=== PATIENT | female | born 1965 | race Caucasian/White ===

== ENCOUNTER 2017-04-27 07:46 | Emergency (ER) | payer BC, MEDICAID ==
[2017-04-27] MEDS ORDERED: Sodium Chloride 0.9% 1,000 ML IV ONE (08:02)
[2017-04-27] MEDS ORDERED: Sodium Chloride 0.9% 2.5 ML Syringe FLUSH PRN (08:02)
[2017-04-27] MEDS ORDERED: Sodium Chloride 0.9% 10 ML Syringe FLUSH PRN (08:02)
--- NOTE | 2017-04-27 08:04 | EDM.PDOC ---
ED HPI GENERAL MEDICAL PROBLEM - General Chief Complaint: Abdominal Pain Stated Complaint: PAIN ON RIGHT SIDE Time Seen by Provider: 04/27/17 08:01 - History of Present Illness INITIAL COMMENTS - FREE TEXT/NARRATIVE: HISTORY AND PHYSICAL: History of present illness: Patient is a 52-year-old white female presents with a concern of right lower quadrant pain she's had associated nausea and vomiting this been going on for 2 weeks she had a total hysterectomy and prior cholecystectomy. There's been no trauma no urinary symptoms no vaginal discharge bleeding or other concern Review of systems: As per history of present illness and below otherwise all systems reviewed and negative. Past medical history: As per history of present illness and as reviewed below otherwise noncontributory. Surgical history: As per history of present illness and as reviewed below otherwise noncontributory. Social history: No reported history of drug or alcohol abuse. Family history: As per history of present illness and as reviewed below otherwise noncontributory. Physical exam: HEENT: Atraumatic, normocephalic, pupils reactive, negative for conjunctival pallor or scleral icterus, mucous membranes moist, throat clear, neck supple, nontender, trachea midline. Lungs: Clear to auscultation, breath sounds equal bilaterally, chest nontender. Heart: S1S2, regular, negative for clicks, rubs, or JVD. Abdomen: Soft, nondistended, pain localizing right lower quadrant no rebound no guarding. Negative for masses or hepatosplenomegaly. Negative for costovertebral tenderness. Pelvis: Stable nontender. Genitourinary: Deferred. Rectal: Deferred. Extremities: Atraumatic, negative for cords or calf pain. Neurovascular unremarkable. Neuro: Awake, alert, oriented. Cranial nerves II through XII unremarkable. Cerebellum unremarkable. Motor and sensory unremarkable throughout. Exam nonfocal. Diagnostics: CBC CMP UA CT abdomen and pelvis Therapeutics: Saline 1 L bolus Impression: 1 right-sided abdominal Definitive disposition and diagnosis as appropriate pending reevaluation and review of above. - Related Data Allergies Allergy/AdvReac Type Severity Reaction Status Date / Time No Known Allergies Allergy Verified 12/29/15 22:46 Home Meds: Home Meds . [No Known Home Meds] 04/27/17 [History] Past Medical History HEENT History: Reports: None Cardiovascular History: Reports: None Respiratory History: Reports: None Gastrointestinal History: Reports: None Genitourinary History: Reports: None THEATRE MANAGER History: Reports: None Musculoskeletal History: Reports: None Neurological History: Reports: None Psychiatric History: Reports: None Endocrine/Metabolic History: Reports: None Hematologic History: Reports: None Immunologic History: Reports: None Oncologic (Cancer) History: Reports: None Dermatologic History: Reports: None - Infectious Disease History Infectious Disease History: Reports: None - Past Surgical History Head Surgeries/Procedures: Reports: None HEENT Surgical History: Reports: None GI Surgical History: Reports: Cholecystectomy Musculoskeletal Surgical History: Reports: None Social & Family History - Tobacco Use Smoking Status *Q: Never Smoker - Caffeine Use Caffeine Use: Reports: None - Recreational Drug Use Recreational Drug Use: No ED ROS GENERAL - Review of Systems Review Of Systems: ROS reveals no pertinent complaints other than HPI. ED EXAM, GENERAL - Physical Exam Exam: See Below (See dictation) Course - Vital Signs Last Recorded V/S: Last Vital Signs Temp 36.4 C 04/27/17 08:00 Pulse 66 04/27/17 08:00 Resp 18 04/27/17 08:00 BP 122/59 L 04/27/17 08:00 Pulse Ox 95 04/27/17 08:00 - Orders/Labs/Meds Orders: Active Orders 24 hr Category Date Time Status COMPREHENSIVE METABOLIC PN,CMP [CHEM] Stat Lab 04/27/17 08:18 Received Sodium Chloride 0.9% [Normal Saline] 1,000 ml Med 04/27/17 08:02 Active IV STAT Sodium Chloride 0.9% [Saline Flush] Med 04/27/17 08:02 Active 10 ml FLUSH ASDIRECTED PRN Sodium Chloride 0.9% [Saline Flush] Med 04/27/17 08:02 Active 2.5 ml FLUSH ASDIRECTED PRN Saline Lock Insert [OM.PC] Stat Oth 04/27/17 08:01 Ordered Medication Orders Sodium Chloride (Normal Saline) 1,000 mls @ 999 mls/hr IV STAT ONE Stop: 04/27/17 09:02 Last Admin: 04/27/17 08:20 Dose: 999 mls/hr Sodium Chloride (Saline Flush) 10 ml FLUSH ASDIRECTED PRN PRN Reason: Keep Vein Open Last Admin: 04/27/17 08:20 Dose: 10 ml Sodium Chloride (Saline Flush) 2.5 ml FLUSH ASDIRECTED PRN PRN Reason: Keep Vein Open Last Admin: 04/27/17 08:20 Dose: 2.5 ml Labs: Laboratory Tests 04/27/17 04/27/17 Range/Units 08:15 08:18 WBC 8.01 (4.0-11.0) K/uL RBC 4.55 (4.30-5.90) M/uL Hgb 14.3 (12.0-16.0) g/dL Hct 42.4 (36.0-46.0) % MCV 93.2 (80.0-98.0) fL MCH 31.4 (27.0-32.0) pg MCHC 33.7 (31.0-37.0) g/dL RDW Std Deviation 42.7 (28.0-62.0) fl RDW Coeff of Jamie 13 (11.0-15.0) % Plt Count 316 (150-400) K/uL MPV 10.30 (7.40-12.00) fL Neut % (Auto) 59.4 (48.0-80.0) % Lymph % (Auto) 32.6 (16.0-40.0) % Pine % (Auto) 6.4 (0.0-15.0) % Eos % (Auto) 1.4 (0.0-7.0) % Baso % (Auto) 0.2 (0.0-1.5) % Neut # (Auto) 4.8 (1.4-5.7) K/uL Lymph # (Auto) 2.6 H (0.6-2.4) K/uL Pine # (Auto) 0.5 (0.0-0.8) K/uL Eos # (Auto) 0.1 (0.0-0.7) K/uL Baso # (Auto) 0.0 (0.0-0.1) K/uL Nucleated RBC % 0.0 /100WBC Nucleated RBCs # 0 K/uL Urine Color YELLOW Urine Appearance SLT CLOUDY Urine pH 6.0 (5.0-8.0) Ur Specific Kiefer 1.025 (1.001-1.035) Urine Protein TRACE (NEGATIVE) mg/dL Urine Glucose (UA) NEGATIVE (NEGATIVE) mg/dL Urine Ketones TRACE H (NEGATIVE) mg/dL Urine Occult Blood NEGATIVE (NEGATIVE) Urine Nitrite NEGATIVE (NEGATIVE) Urine Bilirubin SMALL H (NEGATIVE) Urine Ictotest Urine Urobilinogen 0.2 (<2.0) EU/dL Ur Leukocyte Esterase TRACE (NEGATIVE) Urine RBC 0-1 (0-2/HPF) Urine WBC 0-2 (0-5/HPF) Ur Epithelial Cells OCCASIONAL (NONE-FEW) Urine Bacteria FEW (NEGATIVE) Urine Mucus LIGHT (NONE-MOD) Urinalysis Comment Meds: Medications Generic Name Dose Route Start Last Admin Trade Name Freq PRN Reason Stop Dose Admin Sodium Chloride 1,000 mls @ 999 mls/hr 04/27/17 08:02 04/27/17 08:20 Normal Saline IV 04/27/17 09:02 999 mls/hr STAT ONE Administration Sodium Chloride 10 ml 04/27/17 08:02 04/27/17 08:20 Saline Flush FLUSH 10 ml ASDIRECTED PRN Administration Keep Vein Open Sodium Chloride 2.5 ml 04/27/17 08:02 04/27/17 08:20 Saline Flush FLUSH 2.5 ml ASDIRECTED PRN Administration Keep Vein Open Departure - Departure Time of Disposition: : Disposition: Home, Self-Care 01 Condition: Good Clinical Impression: Abdominal pain - Discharge Information Referrals: PCP,None [Primary Care Provider] - Forms: ED Department Discharge Additional Instructions: The following information is given to patients seen in the emergency department who are being discharged to home. This information is to outline your options for follow-up care. We provide all patients seen in our emergency department with a follow-up referral. The need for follow-up, as well as the timing and circumstances, are variable depending upon the specifics of your emergency department visit. If you don't have a primary care physician on staff, we will provide you with a referral. We always advise you to contact your personal physician following an emergency department visit to inform them of the circumstance of the visit and for follow-up with them and/or the need for any referrals to a consulting specialist. The emergency department will also refer you to a specialist when appropriate. This referral assures that you have the opportunity for followup care with a specialist. All of these measure are taken in an effort to provide you with optimal care, which includes your followup. Under all circumstances we always encourage you to contact your private physician who remains a resource for coordinating your care. When calling for followup care, please make the office aware that this follow-up is from your recent emergency room visit. If for any reason you are refused follow-up, please contact the [facility] emergency department at and asked to speak to the emergency department charge nurse. Specialty Care - General Surgery [facility] [address] [place] [address], [address] [place] [address] Follow-up Gen. surgery clinic above call to schedule appointment as discussed return as needed as discussed - My Orders Last 24 Hours: My Active Orders 04/27/17 08:01 Saline Lock Insert [OM.PC] Stat 04/27/17 08:02 Sodium Chloride 0.9% [Normal Saline] 1,000 ml IV STAT Sodium Chloride 0.9% [Saline Flush] 10 ml FLUSH ASDIRECTED PRN Sodium Chloride 0.9% [Saline Flush] 2.5 ml FLUSH ASDIRECTED PRN 04/27/17 08:18 COMPREHENSIVE METABOLIC PN,CMP [CHEM] Stat - Assessment/Plan Last 24 Hours: My Active Orders 04/27/17 08:01 Saline Lock Insert [OM.PC] Stat 04/27/17 08:02 Sodium Chloride 0.9% [Normal Saline] 1,000 ml IV STAT Sodium Chloride 0.9% [Saline Flush] 10 ml FLUSH ASDIRECTED PRN Sodium Chloride 0.9% [Saline Flush] 2.5 ml FLUSH ASDIRECTED PRN 04/27/17 08:18 COMPREHENSIVE METABOLIC PN,CMP [CHEM] Stat
[2017-04-27 08:19] VITALS: BP 122/59
--- NOTE | 2017-04-27 08:56 | CT ---
CT of the abdomen and pelvis without contrast. HISTORY: Pain TECHNIQUE: Axial CT images were obtained of the abdomen and pelvis without contrast. Coronal and sagi ttal reconstructions obtained. FINDINGS: The lung bases are clear, no pleural effusion. There is a 6 mm nodule within the medial right lung ba se. The liver, spleen, adrenal glands, and pancreas appear unremarkable for noncontrast examination. Chol ecystectomy. There is no bulky retroperitoneal lymphadenopathy. No abdominal ascites. Mild nonspecifi c oni mesentery appearance within the abdomen scattered small mesenteric lymph nodes. There are a f ew tiny fat-containing supraumbilical midline incisional hernias noted. There are no calcifications noted within the kidneys or along the courses of the ureters bilaterally. The large and small bowel are normal in caliber without evidence of obstruction. The appendix appears normal. Mild diverticulosis is noted. There is no bulky pelvic lymphadenopathy. No free fluid. No fr ee air. The urinary bladder appears normal. The visualized osseous structures appear normal. IMPRESSION: 1. No acute findings within the abdomen or pelvis. 2. Mild diverticulosis without definite diverticulitis. 3. Mild nonspecific oni mesentery appearance. 4. Cholecystectomy. 5. Several very tiny supraumbilical midline fat-containing hernias.
[2017-04-27 09:02] LABS: CHLORIDE,CL 107 mmol/L (98-107); SODIUM,NA 144 mmol/L (136-145)
== END 2017-04-27 09:30 | disposition home or self-care (01) ==
LOC: MW.ED 07:46
DX: R10.31 Right lower quadrant pain (principal); Z90.710 Acquired absence of both cervix and uterus; Z90.49 Acquired absence of other specified parts of digestive tract
CPT/HCPCS: 36415; 74176; 80053; 81001; 85025; 96360; 99284; J7040; 99283

== ENCOUNTER 2020-03-29 22:05 | Observation (INO) | payer BC ==
[2020-03-29] MEDS ORDERED: Aspirin 81 MG Tab.Chew PO ONE (22:29)
[2020-03-29] MEDS ORDERED: Sodium Chloride 0.9% 10 ML Syringe FLUSH PRN (22:29)
[2020-03-29] MEDS ORDERED: Sodium Chloride 0.9% 2.5 ML Syringe FLUSH PRN (22:29)
[2020-03-29] MEDS ORDERED: Nitroglycerin 2% Oint 1 GM UD Packet TOP ONE (22:31)
--- NOTE | 2020-03-29 22:35 | EDM.PDOC ---
ED HPI GENERAL MEDICAL PROBLEM - General Chief Complaint: Chest Pain Stated Complaint: CHEST PAIN Time Seen by Provider: 03/29/20 22:20 - History of Present Illness INITIAL COMMENTS - FREE TEXT/NARRATIVE: HISTORY AND PHYSICAL: History of present illness: This is a 54-year-old female with no significant past medical history for hypertension, diabetes, liver, lung, kidney problems to presents to the ER today secondary to intermittent episodes of chest pressure for 3 weeks. Patient reports today while she was assisting her move a table she started experiencing discomfort to her chest. She reports the discomfort feels like a pressure sensation in the midsternal region with numbness going down both arms and associated shortness of breath. Patient denies any nausea, vomiting, diaphoresis. Patient reports pain is sometimes exacerbated with exertional and other times is improved with walking. Patient reports pain with expiration but no pain with inspiration. Patient denies any recent fevers, shakes, chills, nausea, vomiting, diarrhea, dysuria, frequency, urgency, abdominal pain. Patient denies any melena or bright red blood per rectum. Review of systems: As per history of present illness and below otherwise all systems reviewed and negative. Past medical history: As per history of present illness and as reviewed below otherwise noncontributory. Surgical history: As per history of present illness and as reviewed below otherwise noncontributory. Social history: No reported history of drug or alcohol abuse. Family history: As per history of present illness and as reviewed below otherwise noncontributory. Physical exam: Constitutional: Patient is oriented to person, place, and time. Appears well- developed and well-nourished. No distress. HEENT: Moist mucous membranes Head: Normocephalic and atraumatic Eyes: Right eye exhibits no discharge. Left eye exhibits no discharge. No scleral icterus Neck: Normal range of motion. No tracheal deviation present. Cardiovascular: Normal rate and regular rhythm. Pulmonary: Effort normal, no respiratory distress. Abdominal: No distention Musculoskeletal: Normal range of motion Neurologic: Alert and oriented to person, place and time. Skin: [place], warm and dry. Psychiatric: Normal mood and affect. Behavior is normal. Judgment and thought content normal. Nursing note and vital signs have been reviewed This patient was seen and evaluated during the 2019 SARS-CoV-2 novel coronavirus pandemic period. Community viral transmission is ongoing at time of this encounter and the emergency department is operating under pandemic response procedures. Diagnostics: EKG: As interpreted by ER physician: Neela: Nonspecific ST-T wave abnormalities Normal axis No evidence of ST elevation PR Normal sinus rhythm heart rate of 62 Chest Xray: Normal cardiac silhouette No infiltrates or effusions identified. No PTX No evidence of acute bony fracture. As interpreted by ER MD: [employer]: [] Assessment and plan: This is a 54-year-old female with no significant cardiac risk factors who presents ER today complaining of exertional chest discomfort, shortness of breath, tingling down both arms. She reports been having intermittent chest discomfort for 3 weeks. Patient reports she is never had a cardiac work-up in the past. Patient has no significant family history for coronary disease, no hypertension, no diabetes, negative tobacco, negative cholesterol. Patient denies any PE risk factors at this time. Patient reports she has no lower extremity edema. Patient reports that she has chronic swelling to her left lower leg but no significant changes. Patient reports no recent long trips or car rides. Patient will have labs drawn to assess her cardiac enzymes, CBC, CMP, D-dimer, BNP. We will look at her chest x-ray and EKG. I have discussed with the patient the limitation of these tests and the likely need for observation admission for further cardiac monitoring. Patient is agreement with the plan at this time. Patient's labs are all within normal limits. Patient has normal D-dimer, BNP, troponin, chest x-ray/EKG. Patient is agreeable to observation for further cardiac evaluation. I have discussed the case with Dr. Vargas who is agreed to assist this with observation level care of this patient for further cardiac monitoring. Definitive disposition and diagnosis as appropriate pending reevaluation and review of above. Chest Pain Score (Numeric/FACES): 6 - Related Data Allergies Allergy/AdvReac Type Severity Reaction Status Date / Time No Known Allergies Allergy Verified 03/30/20 04:20 Home Meds: Home Meds . [No Known Home Meds] 04/27/17 [History] Past Medical History HEENT History: Reports: None Cardiovascular History: Reports: None Respiratory History: Reports: None Gastrointestinal History: Reports: None Genitourinary History: Reports: None FINANCIAL CONTROLLER History: Reports: None Musculoskeletal History: Reports: None Neurological History: Reports: None Psychiatric History: Reports: None Endocrine/Metabolic History: Reports: None Hematologic History: Reports: None Immunologic History: Reports: None Oncologic (Cancer) History: Reports: None Dermatologic History: Reports: None - Infectious Disease History Infectious Disease History: Reports: None - Past Surgical History Head Surgeries/Procedures: Reports: None HEENT Surgical History: Reports: None GI Surgical History: Reports: Cholecystectomy Musculoskeletal Surgical History: Reports: None Social & Family History - Caffeine Use Caffeine Use: Reports: None ED ROS GENERAL - Review of Systems Review Of Systems: See Below ED EXAM, GENERAL - Physical Exam Exam: See Below Course - Vital Signs Last Recorded V/S: Last Vital Signs Temp 96.6 F L 03/30/20 08:00 Pulse 66 03/30/20 08:00 Resp 17 03/30/20 08:00 BP 131/65 03/30/20 08:00 Pulse Ox 94 L 03/30/20 08:15 - Orders/Labs/Meds Orders: Active Orders 24 hr Category Date Time Status Saline Lock Insert [OM.PC] Stat Oth 03/29/20 22:29 Ordered Labs: Laboratory Tests 03/29/20 03/29/20 03/29/20 Range/Units 22:12 22:12 22:12 WBC 11.98 H (4.0-11.0) K/uL RBC 4.12 L (4.30-5.90) M/uL Hgb 13.4 (12.0-16.0) g/dL Hct 39.5 (36.0-46.0) % MCV 95.9 (80.0-98.0) fL MCH 32.5 H (27.0-32.0) pg MCHC 33.9 (31.0-37.0) g/dL RDW Std Deviation 44.7 (28.0-62.0) fl RDW Coeff of Jamie 13 (11.0-15.0) % Plt Count 361 (150-400) K/uL MPV 10.50 (7.40-12.00) fL Neut % (Auto) 58.2 (48.0-80.0) % Lymph % (Auto) 31.4 (16.0-40.0) % [place]aca % (Auto) 9.0 (0.0-15.0) % Eos % (Auto) 1.2 (0.0-7.0) % Baso % (Auto) 0.2 (0.0-1.5) % Neut # (Auto) 7.0 H (1.4-5.7) K/uL Lymph # (Auto) 3.8 H (0.6-2.4) K/uL [place] # (Auto) 1.1 H (0.0-0.8) K/uL Eos # (Auto) 0.1 (0.0-0.7) K/uL Baso # (Auto) 0.0 (0.0-0.1) K/uL Nucleated RBC % 0.0 /100WBC Nucleated RBCs # 0 K/uL D-Dimer, Quantitative 0.42 (0.0-0.50) mg/L FEU Sodium 142 (136-145) mmol/L Potassium 4.1 (3.5-5.1) mmol/L Chloride 105 (98-107) mmol/L Carbon Dioxide 30.5 (21.0-32.0) mmol/L BUN 21 H (7.0-18.0) mg/dL Creatinine 1.5 H (0.6-1.0) mg/dL Est Cr Clr Drug Dosing 41.48 mL/min Estimated GFR (MDRD) 35.9 ml/min Glucose 99 (74-106) mg/dL Calcium 8.9 (8.5-10.1) mg/dL Total Bilirubin 0.6 (0.2-1.0) mg/dL AST 24 (15-37) IU/L ALT 37 (14-63) IU/L Alkaline Phosphatase 71 (46-116) U/L Troponin I < 0.050 (0.000-0.056) ng/mL B-Natriuretic Peptide (<100) PG/ML Total Protein 7.5 (6.4-8.2) g/dL Albumin 3.8 (3.4-5.0) g/dL Globulin 3.7 (2.6-4.0) g/dL Albumin/Globulin Ratio 1.0 (0.9-1.6) SARS-CoV-2 RNA (CAMPOS) (NEGATIVE) 03/29/20 03/29/20 Range/Units 22:12 22:50 WBC (4.0-11.0) K/uL RBC (4.30-5.90) M/uL Hgb (12.0-16.0) g/dL Hct (36.0-46.0) % MCV (80.0-98.0) fL MCH (27.0-32.0) pg MCHC (31.0-37.0) g/dL RDW Std Deviation (28.0-62.0) fl RDW Coeff of Jamie (11.0-15.0) % Plt Count (150-400) K/uL MPV (7.40-12.00) fL Neut % (Auto) (48.0-80.0) % Lymph % (Auto) (16.0-40.0) % [place]aca % (Auto) (0.0-15.0) % Eos % (Auto) (0.0-7.0) % Baso % (Auto) (0.0-1.5) % Neut # (Auto) (1.4-5.7) K/uL Lymph # (Auto) (0.6-2.4) K/uL [place] # (Auto) (0.0-0.8) K/uL Eos # (Auto) (0.0-0.7) K/uL Baso # (Auto) (0.0-0.1) K/uL Nucleated RBC % /100WBC Nucleated RBCs # K/uL D-Dimer, Quantitative (0.0-0.50) mg/L FEU Sodium (136-145) mmol/L Potassium (3.5-5.1) mmol/L Chloride (98-107) mmol/L Carbon Dioxide (21.0-32.0) mmol/L BUN (7.0-18.0) mg/dL Creatinine (0.6-1.0) mg/dL Est Cr Clr Drug Dosing mL/min Estimated GFR (MDRD) ml/min Glucose (74-106) mg/dL Calcium (8.5-10.1) mg/dL Total Bilirubin (0.2-1.0) mg/dL AST (15-37) IU/L ALT (14-63) IU/L Alkaline Phosphatase (46-116) U/L Troponin I (0.000-0.056) ng/mL B-Natriuretic Peptide 9 (<100) PG/ML Total Protein (6.4-8.2) g/dL Albumin (3.4-5.0) g/dL Globulin (2.6-4.0) g/dL Albumin/Globulin Ratio (0.9-1.6) SARS-CoV-2 RNA (CAMPOS) NEGATIVE (NEGATIVE) Meds: Medications Discontinued Medications Generic Name Dose Route Start Last Admin Trade Name Freq PRN Reason Stop Dose Admin Acetaminophen 650 mg 03/30/20 08:15 03/30/20 10:04 Tylenol PO 650 mg Q4H PRN Administration Pain (Mild 1-3)/fever Aspirin 324 mg 03/29/20 22:29 03/29/20 22:40 Aspirin PO 03/29/20 22:30 324 mg ONETIME ONE Administration Aspirin Confirm 03/29/20 22:41 03/30/20 00:52 Aspirin Administered 03/29/20 22:42 Not Given Dose 324 mg .ROUTE .STK-MED ONE Sodium Chloride 1,000 mls @ 999 mls/hr 03/30/20 08:19 03/30/20 09:51 Normal Saline IV 03/30/20 09:19 999 mls/hr STAT ONE Administration Nitroglycerin 1 gm 03/29/20 22:31 03/29/20 22:41 Nitro-Bid 2% TOP 03/29/20 22:32 1 gm ONETIME ONE Administration Nitroglycerin Confirm 03/29/20 22:41 03/30/20 00:53 Nitro-Bid 2% Administered 03/29/20 22:42 Not Given Dose 1 gm .ROUTE .STK-MED ONE Ondansetron HCl 4 mg 03/30/20 08:15 Zofran IVPUSH Q4H PRN Nausea Sodium Chloride 10 ml 03/29/20 22:29 03/29/20 22:41 Saline Flush FLUSH 10 ml ASDIRECTED PRN Administration Keep Vein Open Sodium Chloride 2.5 ml 03/29/20 22:29 03/29/20 22:41 Saline Flush FLUSH 2.5 ml ASDIRECTED PRN Administration Keep Vein Open Departure - Departure Time of Disposition: 23:37 Disposition: Refer to Observation Condition: Good Clinical Impression: Acute coronary syndrome - Discharge Information Sepsis Event Note (ED) - Evaluation Sepsis Screening Result: No Definite Risk - My Orders Last 24 Hours: My Active Orders 03/29/20 22:29 Saline Lock Insert [OM.PC] Stat - Assessment/Plan Last 24 Hours: My Active Orders 03/29/20 22:29 Saline Lock Insert [OM.PC] Stat
[2020-03-29] MEDS ORDERED: Aspirin 81 MG Tab.Chew ONE (22:41)
[2020-03-29] MEDS ORDERED: Nitroglycerin 2% Oint 1 GM UD Packet ONE (22:41)
--- NOTE | 2020-03-29 22:48 | CR ---
INDICATION: chest pain CHEST, ONE VIEW An AP radiograph of the chest was performed. Comparison: No previous studies are currently available for comparison. The lungs appear clear and no pleural effusions are identified. The cardiomediastinal silhouette and pulmonary vasculature appear normal, as do the visualized bones. IMPRESSION: No acute intrathoracic abnormality identified. LE WILKES MD [employer] [employer] Dictated by: Steffen Wilkes MD @ 03/29/2020 22:48:34 (Electronically Signed)
[2020-03-29 22:56] LABS: BLOOD UREA NITROGEN,BUN 21 mg/dL (7.0-18.0); CARBON DIOXIDE,CO2 30.5 mmol/L (21.0-32.0); CHLORIDE,CL 105 mmol/L (98-107); GLUCOSE RANDOM 99 mg/dL (74-106); POTASSIUM,K 4.1 mmol/L (3.5-5.1); SODIUM,NA 142 mmol/L (136-145)
[2020-03-30 08:07] VITALS: BP 131/65; PULSE 66
[2020-03-30] MEDS ORDERED: Acetaminophen 325 MG Tab PO PRN (08:15)
[2020-03-30] MEDS ORDERED: Ondansetron 4 MG/2 ML SDV IVPUSH PRN (08:15)
[2020-03-30] MEDS ORDERED: Sodium Chloride 0.9% 1,000 ML IV ONE (08:19)
--- NOTE | 2020-03-30 08:24 | PCM.HP.2 ---
H&P History of Present Illness - General Date of Service: 03/30/20 Admit Problem/Dx: Admission Diagnosis/Problem Admission Diagnosis/Problem Acute coronary syndrome Source of Information: Patient History Limitations: Reports: No Limitations - History of Present Illness Initial Comments - Free Text/Narative: 54-year-old female presented complaining of chest pain. She reports no significant PMH. Patient has had intermittent chest pain for the past 3 weeks, located in her central chest, described as feeling like "a pressure," and will last for a few hours. She also had associated right and left arm numbness and tingling and shortness of breath. She does report feeling a lot of stress lately but came to the ER because she was concerned about her heart. She has not had a ny fevers, chill, sore throat, cough, nausea, vomiting, abdominal pain, bloody stool or bloody urine. She denies any tobacco, alcohol or illicit drug use. In the ER, CBC unremarkable, creatinine 1.5, troponin negative, D-dimer normal and BNP normal. CXR was unremarkable. Patient given aspirin 324 mg. EKG showed NSR with no acute ischemic changes. She was admitted for further evaluation and treatment. Chest Pain Score (Numeric/FACES): 3 - Related Data Allergies/Adverse Reactions: Allergies Allergy/AdvReac Type Severity Reaction Status Date / Time No Known Allergies Allergy Verified 03/30/20 04:20 Home Medications: Home Meds . 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 Musculoskeletal History: Reports: None Neurological History: Reports: None Psychiatric History: Reports: None Endocrine/Metabolic History: Reports: None Hematologic History: Reports: None Immunologic History: Reports: None Oncologic (Cancer) History: Reports: None Dermatologic History: Reports: None - Infectious Disease History Infectious Disease History: Reports: None - Past Surgical History Head Surgeries/Procedures: Reports: None HEENT Surgical History: Reports: None GI Surgical History: Reports: Cholecystectomy Female Surgical History: Reports: Hysterectomy Musculoskeletal Surgical History: Reports: None Social & Family History - Family History Family Medical History: No Pertinent Family History - Tobacco Use Tobacco Use Status *Q: Never Tobacco User Second Hand Smoke Exposure: No - Caffeine Use Caffeine Use: Reports: None - Recreational Drug Use Recreational Drug Use: No H&P Review of Systems - Review of Systems: Review Of Systems: Comprehensive ROS is negative, except as noted in HPI. Exam - Exam Exam: See Below - Vital Signs Vital Signs: Last Vital Signs Temp 35.9 C L 03/30/20 08:00 Pulse 66 03/30/20 08:00 Resp 17 03/30/20 08:00 BP 131/65 03/30/20 08:00 Pulse Ox 94 L 03/30/20 08:00 Weight: 88.723 kg - Exam General: Alert, Oriented, Cooperative, Other (NAD) HEENT: Conjunctiva Clear, EOMI, Hearing Intact, Pupils Equal, Pupils Reactive Neck: Supple, Trachea Midline Lungs: Clear to Auscultation, Normal Respiratory Effort Cardiovascular: Regular Rate, Regular Rhythm GI/Abdominal Exam: Normal Bowel Sounds, Soft, Non-Tender, No Distention Extremities: Normal Inspection, No Pedal Edema Peripheral Pulses: 2+: Radial (L), Radial (R) Skin: Warm, Dry, Intact Neurological: Cranial Nerves Intact, Reflexes Equal Bilateral, Strength Equal Bilateral, Normal Speech, Normal Tone Neuro Extensive - Mental Status: Alert, Oriented x3, Normal Mood/Affect Psychiatric: Alert, Normal Affect, Normal Mood - Patient Data Lab Results Last 24 hrs: Laboratory Results - last 24 hr 03/29/20 03/29/20 03/29/20 Range/Units 22:12 22:12 22:12 WBC 11.98 H (4.0-11.0) K/uL RBC 4.12 L (4.30-5.90) M/uL Hgb 13.4 (12.0-16.0) g/dL Hct 39.5 (36.0-46.0) % MCV 95.9 (80.0-98.0) fL MCH 32.5 H (27.0-32.0) pg MCHC 33.9 (31.0-37.0) g/dL RDW Std Deviation 44.7 (28.0-62.0) fl RDW Coeff of Jamie 13 (11.0-15.0) % Plt Count 361 (150-400) K/uL MPV 10.50 (7.40-12.00) fL Neut % (Auto) 58.2 (48.0-80.0) % Lymph % (Auto) 31.4 (16.0-40.0) % Victoria % (Auto) 9.0 (0.0-15.0) % Eos % (Auto) 1.2 (0.0-7.0) % Baso % (Auto) 0.2 (0.0-1.5) % Neut # (Auto) 7.0 H (1.4-5.7) K/uL Lymph # (Auto) 3.8 H (0.6-2.4) K/uL Victoria # (Auto) 1.1 H (0.0-0.8) K/uL Eos # (Auto) 0.1 (0.0-0.7) K/uL Baso # (Auto) 0.0 (0.0-0.1) K/uL Nucleated RBC % 0.0 /100WBC Nucleated RBCs # 0 K/uL D-Dimer, Quantitative 0.42 (0.0-0.50) mg/L FEU Sodium 142 (136-145) mmol/L Potassium 4.1 (3.5-5.1) mmol/L Chloride 105 (98-107) mmol/L Carbon Dioxide 30.5 (21.0-32.0) mmol/L BUN 21 H (7.0-18.0) mg/dL Creatinine 1.5 H (0.6-1.0) mg/dL Est Cr Clr Drug Dosing 41.48 mL/min Estimated GFR (MDRD) 35.9 ml/min Glucose 99 (74-106) mg/dL Calcium 8.9 (8.5-10.1) mg/dL Total Bilirubin 0.6 (0.2-1.0) mg/dL AST 24 (15-37) IU/L ALT 37 (14-63) IU/L Alkaline Phosphatase 71 (46-116) U/L Troponin I < 0.050 (0.000-0.056) ng/mL B-Natriuretic Peptide (<100) PG/ML Total Protein 7.5 (6.4-8.2) g/dL Albumin 3.8 (3.4-5.0) g/dL Globulin 3.7 (2.6-4.0) g/dL Albumin/Globulin Ratio 1.0 (0.9-1.6) SARS-CoV-2 RNA (CAMPOS) (NEGATIVE) 03/29/20 03/29/20 03/30/20 Range/Units 22:12 22:50 03:57 WBC (4.0-11.0) K/uL RBC (4.30-5.90) M/uL Hgb (12.0-16.0) g/dL Hct (36.0-46.0) % MCV (80.0-98.0) fL MCH (27.0-32.0) pg MCHC (31.0-37.0) g/dL RDW Std Deviation (28.0-62.0) fl RDW Coeff of Jamie (11.0-15.0) % Plt Count (150-400) K/uL MPV (7.40-12.00) fL Neut % (Auto) (48.0-80.0) % Lymph % (Auto) (16.0-40.0) % Victoria % (Auto) (0.0-15.0) % Eos % (Auto) (0.0-7.0) % Baso % (Auto) (0.0-1.5) % Neut # (Auto) (1.4-5.7) K/uL Lymph # (Auto) (0.6-2.4) K/uL Victoria # (Auto) (0.0-0.8) K/uL Eos # (Auto) (0.0-0.7) K/uL Baso # (Auto) (0.0-0.1) K/uL Nucleated RBC % /100WBC Nucleated RBCs # K/uL D-Dimer, Quantitative (0.0-0.50) mg/L FEU Sodium (136-145) mmol/L Potassium (3.5-5.1) mmol/L Chloride (98-107) mmol/L Carbon Dioxide (21.0-32.0) mmol/L BUN (7.0-18.0) mg/dL Creatinine (0.6-1.0) mg/dL Est Cr Clr Drug Dosing mL/min Estimated GFR (MDRD) ml/min Glucose (74-106) mg/dL Calcium (8.5-10.1) mg/dL Total Bilirubin (0.2-1.0) mg/dL AST (15-37) IU/L ALT (14-63) IU/L Alkaline Phosphatase (46-116) U/L Troponin I < 0.050 (0.000-0.056) ng/mL B-Natriuretic Peptide 9 (<100) PG/ML Total Protein (6.4-8.2) g/dL Albumin (3.4-5.0) g/dL Globulin (2.6-4.0) g/dL Albumin/Globulin Ratio (0.9-1.6) SARS-CoV-2 RNA (CAMPOS) NEGATIVE (NEGATIVE) Result Diagrams: 03/29/20 22:12 03/29/20 22:12 Sepsis Event Note - Evaluation Sepsis Screening Result: No Definite Risk - Focused Exam Vital Signs: Vital Signs Temp Pulse Resp BP Pulse Ox 03/30/20 08:00 35.9 C L 66 17 131/65 94 L 03/30/20 04:00 36.1 C 70 15 112/57 L 95 03/30/20 01:00 36.0 C L 63 16 144/68 H 96 03/30/20 00:54 57 L 113/53 L 97 03/29/20 22:17 36.3 C 57 L 16 146/62 H 99 - Problem List (1) Chest pain SNOMED Code(s): 70649628 ICD Code: R07.9 - CHEST PAIN, UNSPECIFIED Status: Acute Current Visit: Yes (2) HERNANDO (acute kidney injury) SNOMED Code(s): 83050255, 57163389 ICD Code: N17.9 - ACUTE KIDNEY FAILURE, UNSPECIFIED Status: Acute Current Visit: Yes Problem List Initiated/Reviewed/Updated: Yes Orders Last 24hrs: Active Orders 24 hr Category Date Time Status Patient Status [ADT] Routine ADT 03/29/20 23:37 Active Antiembolic Devices [RC] PER UNIT ROUTINE Care 03/30/20 08:15 Active Oxygen Therapy [RC] PRN Care 03/30/20 08:15 Active Telemetry Monitoring [Cardiac Monitoring] [RC] . Care 03/30/20 00:22 Active DIRECTED Up ad Sejal [RC] ASDIRECTED Care 03/30/20 08:15 Active VTE/DVT Education [RC] PER UNIT ROUTINE Care 03/30/20 08:15 Active Vital Signs [RC] Q4H Care 03/30/20 08:15 Active Regular Diet [DIET] Diet 03/30/20 Breakfast Active CBC WITH AUTO DIFF [HEME] AM Lab 03/31/20 05:11 Ordered COMPREHENSIVE METABOLIC PN,CMP [CHEM] AM Lab 03/31/20 05:11 Ordered TROPONIN I [CHEM] Q6H Lab 03/30/20 10:00 Ordered Acetaminophen [TylenoL] Med 03/30/20 08:15 Active 650 mg PO Q4H PRN Ondansetron [Zofran] Med 03/30/20 08:15 Active 4 mg IVPUSH Q4H PRN Sodium Chloride 0.9% [Normal Saline] 1,000 ml Med 03/30/20 08:19 Ordered IV STAT Sodium Chloride 0.9% [Saline Flush] Med 03/29/20 22:29 Active 10 ml FLUSH ASDIRECTED PRN Sodium Chloride 0.9% [Saline Flush] Med 03/29/20 22:29 Active 2.5 ml FLUSH ASDIRECTED PRN Saline Lock Insert [OM.PC] Stat Oth 03/29/20 22:29 Ordered Sequential Compression Device [OM.PC] Per Unit Routine Oth 03/30/20 08:15 Ordered Resuscitation Status Routine Resus Stat 03/30/20 08:15 Ordered Medication Orders Acetaminophen (Tylenol) 650 mg PO Q4H PRN PRN Reason: Pain (Mild 1-3)/fever Sodium Chloride (Normal Saline) 1,000 mls @ 999 mls/hr IV STAT ONE Stop: 03/30/20 09:19 Ondansetron HCl (Zofran) 4 mg IVPUSH Q4H PRN PRN Reason: Nausea Sodium Chloride (Saline Flush) 10 ml FLUSH ASDIRECTED PRN PRN Reason: Keep Vein Open Last Admin: 03/29/20 22:41 Dose: 10 ml Documented by: ALESIA Sodium Chloride (Saline Flush) 2.5 ml FLUSH ASDIRECTED PRN PRN Reason: Keep Vein Open Last Admin: 03/29/20 22:41 Dose: 2.5 ml Documented by: ALESIA Assessment/Plan Comment:: Assessment and Plan: 1. Chest pain, ACS rule out: - Patient on telemetry. Will trend troponins. EKG showed NSR with no acute ischemic changes. - CXR unremarkable. 2. HERNANDO: - Will order 1 L NS bolus. 3. DVT prophylaxis: - SCD's. Discharge Summary: 54-year-old female admitted for chest pain, ACS rule out. She has no significant PMH. EKG showed no acute ischemic changes. Troponins were trended and were negative x 3. No reported events on telemetry overnight. On morning of discharge, patient noted no recurrence of her chest pain. She does report dealing with a lot of stress lately and she was encouraged on focusing on stress relieving methods. Her creatinine was 1.5 and was given IV NS bolus. R ecommended repeat CMP when following-up with PCP as an outpatient. Patient was discharged in stable condition and will be set up for EKG stress test with results forwarded to her PCP Dr. Curry.
== END 2020-03-30 11:25 | disposition home or self-care (01) ==
LOC: MW.ED 22:05 → UNDOADMOB 23:37 → MW.ICU 23:37
PROVIDERS: ADMIT Internal Medicine; ATTEND Internal Medicine
DX: R07.89 Other chest pain (principal); N17.9 Acute kidney failure, unspecified; Z90.49 Acquired absence of other specified parts of digestive tract; Z20.822 Contact with and (suspected) exposure to COVID-19
CPT/HCPCS: 36415; 71045; 80053; 83880; 84484; 85025; 85379; 87635; 93005; 99285; A9270; G0378; J7030; 93010; 99284; U0002

== ENCOUNTER 2020-11-25 10:52 | Emergency (ER) | payer BC ==
--- NOTE | 2020-11-25 12:21 | EDM.PDOC ---
ED HPI GENERAL MEDICAL PROBLEM - General Chief Complaint: Respiratory Problem Stated Complaint: COUGH Time Seen by Provider: 11/25/20 11:46 Source of Information: Reports: Patient History Limitations: Reports: No Limitations - History of Present Illness INITIAL COMMENTS - FREE TEXT/NARRATIVE: HISTORY AND PHYSICAL: History of present illness: Patient is a 55-year-old female who presents to the emergency room with complaints of thick productive cough and shortness of breath x1 week. Patient denies any fever, chills, headache, change in vision, syncope or near syncope. Denies any chest pain, back pain, GI or symptoms. Patient has been eating and drinking appropriately. No recent travel or sick contacts. Review of systems: As per history of present illness and below otherwise all systems reviewed and negative. Past medical history: As per history of present illness and as reviewed below otherwise noncontributory. Surgical history: As per history of present illness and as reviewed below otherwise noncontributory. Social history: See social history for further information Family history: As per history of present illness and as reviewed below otherwise no ncontributory. Physical exam: General: Well developed and well nourished 55 year old female. Alert and orientated x 3. Nontoxic in appearance and in no acute distress. Vital signs are stable and have been reviewed by me. Nursing notes were reviewed. HEENT: Atraumatic, normocephalic, pupils equal and reactive bilaterally, negative for conjunctival pallor or scleral icterus, mucous membranes moist, throat clear, neck supple, nontender, trachea midline. No drooling or trismus noted. No meningeal signs. No hot potato voice noted. Lungs: Diminished to auscultation bilaterally. No wheezes, rales, or rhonchi. Chest nontender. Normal work of breathing, no accessory muscles used. Dry nonproductive cough is noted. Heart: S1S2, regular rate and rhythm without overt murmur, gallops, or rubs. No JVD. No peripheral edema Abdomen: Soft, nondistended, nontender. Normoactive bowel sounds. Negative for masses or costovertebral tenderness. Skin: Intact, warm, dry. No lesions or rashes noted. Hematologic: No petechiae or purpra. Mucosa appropriate color and normal nail bed color and refill. Extremities: Atraumatic, moves all extremities per self without difficulty or deficits, negative for cords or calf pain. Neurovascular unremarkable. Neuro: Awake, alert, oriented. Cranial nerves II through XII unremarkable. Cerebellum unremarkable. Motor and sensory unremarkable throughout. Exam nonfocal. Psychiatric: Mood and affect are appropriate. Normal thought process. Answering questions appropriately. Please note that the patient was seen and evaluated during the 2019 SARS-CoV-2 novel coronavirus pandemic period. Community viral transmission is ongoing at time of this encounter and the emergency department is operating under pandemic response procedures. Medical Decision Making: Patient is a 55-year-old female who presents to the emergency room with complaints of cough and shortness of breath x1 week. Her tested positive for COVID-19. Physical exam is unremarkable. Vital signs are stable Chest x-ray shows new minimal patchy right mid and left lateral lower lung infiltrates, nonspecific. Findings not strongly suggestive for COVID-19, but this cannot be excluded. I have talked with the patient about today's findings, in addition to providing specific details for plan of care. Reassessment at the time of disposition demonstrates that the patient is in no acute distress. The patient is stable for discharge, counseling was provided and we discussed in great detail signs and symptoms that would prompt them to return to the Emergency Department. Medication, follow up and supportive care measures were reviewed and discussed. Voices understanding and is agreeable to plan of care. Denies any further questions or concerns at this time. Diagnostics: CXR, COVID Therapeutics: None Prescription: None Impression: COVID-19 Plan: 1. Your COVID-19 screening is positive. That means you do have the coronavirus and you are considered contagious. Your vital signs and oxygen saturation are well enough that you were able to monitor your symptoms at home. Continue to monitor for trouble breathing, new confusion or inability to arouse, bluish lips or face or any of the other symptoms we discussed -if this occurs please return to the emergency room immediately. 2. Please self quarantine until cleared by [facility] Department. Inform any persons that you have been in contact with since you started becoming symptomatic that you have tested positive; they should be made aware and take the appropriate steps as needed. 3. You can take NyQuil during the evening to help get a restful night sleep. May alternate Tylenol and ibuprofen as needed for pain and fever management. 4. The [facility] department will be calling you and following up with you. The [place] COVID 19 Hotline phone number , They are open Thursday - Thursday 7am - 7pm. Follow up with your primary care provider for re-evaluation as directed. Definitive disposition and diagnosis as appropriate pending reevaluation and review of above. - Related Data Allergies Allergy/AdvReac Type Severity Reaction Status Date / Time Sulfa (Sulfonamide Allergy Rash Verified 11/25/20 12:09 Antibiotics) Home Meds: Home Meds . 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 Musculoskeletal History: Reports: None Neurological History: Reports: None Psychiatric History: Reports: None Endocrine/Metabolic History: Reports: None Hematologic History: Reports: None Immunologic History: Reports: None Oncologic (Cancer) History: Reports: None Dermatologic History: Reports: None - Infectious Disease History Infectious Disease History: Reports: None - Past Surgical History Head Surgeries/Procedures: Reports: None HEENT Surgical History: Reports: None GI Surgical History: Reports: Cholecystectomy Female Surgical History: Reports: Hysterectomy Musculoskeletal Surgical History: Reports: None Social & Family History - Family History Family Medical History: No Pertinent Family History - Caffeine Use Caffeine Use: Reports: None ED ROS GENERAL - Review of Systems Review Of Systems: Comprehensive ROS is negative, except as noted in HPI. ED EXAM, GENERAL - Physical Exam Exam: See Below (See dictation) Course - Vital Signs Last Recorded V/S: Last Vital Signs Temp Pulse 67 11/25/20 12:53 Resp 16 11/25/20 12:53 BP 116/53 L 11/25/20 12:53 Pulse Ox 95 11/25/20 12:53 - Orders/Labs/Meds Orders: Active Orders 24 hr Category Date Time Status CORONAVIRUS COVID-19 CAMPOS [MOLEC] Stat Lab 11/25/20 12:48 Received Departure - Departure Time of Disposition: 13:33 Disposition: Home, Self-Care 01 Clinical Impression: COVID-19 - Discharge Information Instructions: 10 Things You Can Do to Manage Your COVID-19 Symptoms at Home - [facility] (08/24/2020) Referrals: Bebeto Curry MD [Primary Care Provider] - Forms: ED Department Discharge Additional Instructions: The following information is given to patients seen in the emergency department who are being discharged to home. This information is to outline your options for follow-up care. We provide all patients seen in our emergency department with a follow-up referral. The need for follow-up, as well as the timing and circumstances, are variable depending upon the specifics of your emergency department visit. If you don't have a primary care physician on staff, we will provide you with a referral. We always advise you to contact your personal physician following an emergency department visit to inform them of the circumstance of the visit and for follow-up with them and/or the need for any referrals to a consulting specialist. The emergency department will also refer you to a specialist when appropriate. This referral assures that you have the opportunity for follow-up care with a specialist. All of these measure are taken in an effort to provide you with optimal care, which includes your follow-up. Under all circumstances we always encourage you to contact your private physician who remains a resource for coordinating your care. When calling for follow-up care, please make the office aware that this follow-up is from your recent emergency room visit. If for any reason you are refused follow-up, please contact the [facility] at and asked to speak to the emergency department charge nurse. [facility] [address] [place] [address] [place] [address] Thank you for choosing the [facility] emergency department in [place] for your medical needs today. It was a pleasure caring for you. Today you were seen in the emergency department for COVID-19 1. Today you were evaluated on an emergent basis. Your chest x-ray shows signs of COVID-19 although no concern for bacterial pneumonia. Your COVID-19 screening is positive. That means you do have the coronavirus and you are considered contagious. Your vital signs and oxygen saturation are well enough that you were able to monitor your symptoms at home. Continue to monitor for trouble breathing, new confusion or inability to arouse, bluish lips or face or any of the other symptoms we discussed -if this occurs please return to the emergency room immediately. 2. Please self quarantine until cleared by [facility] Department. Inform any persons that you have been in contact with since you started becoming symptomatic that you have tested positive; they should be made aware and take the appropriate steps as needed. 3. You can take NyQuil during the evening to help get a restful night sleep. May alternate Tylenol and ibuprofen as needed for pain and fever management. 4. The [facility] department will be calling you and following up with you. The [place] COVID 19 Hotline phone number , They are open Thursday - Thursday 7am - 7pm. Follow up with your primary care provider for re-evaluation as directed. Sepsis Event Note (ED) - Focused Exam Vital Signs: Vital Signs Pulse Resp BP Pulse Ox 11/25/20 12:53 67 16 116/53 L 95 11/25/20 12:12 75 16 100/65 95 - My Orders Last 24 Hours: My Active Orders 11/25/20 12:48 CORONAVIRUS COVID-19 CAMPOS [MOLEC] Stat - Assessment/Plan Last 24 Hours: My Active Orders 11/25/20 12:48 CORONAVIRUS COVID-19 CAMPOS [MOLEC] Stat
[2020-11-25 12:55] VITALS: BP 116/53
--- NOTE | 2020-11-25 13:00 | CR ---
INDICATION: Cough COMPARISON: 03/29/2020 FINDINGS: PA and lateral views of the chest were obtained. There are new minimal patchy right mid and left lateral lower lung infiltrates. These are nonspecific, and could represent an atypical pneumonia such as COVID-19, but could also be from an early bacterial pneumonia. The rest of the chest remains clear. There is no sign of any pleural effusions. The heart remains normal in size. The mediastinum is normal in appearance. The osseous structures are normal in appearance for the patient`s age. IMPRESSION: New minimal patchy right mid and left lateral lower lung infiltrates, nonspecific. Findings not strongly suggestive for COVID-19, but this cannot be excluded. Dictated by Rusty Suarez MD @ 11/25/2020 12:59:23 PM (Electronically Signed)
[2020-11-25 13:55] VITALS: PULSE 68
== END 2020-11-25 13:54 | disposition home or self-care (01) ==
LOC: MW.ED 10:52
DX: U07.1 COVID-19 (principal); Z88.2 Allergy status to sulfonamides
CPT/HCPCS: 71046; 71046-26; 87804; 99285-25; U0002

== ENCOUNTER 2023-02-25 13:13 | Emergency (ER) | payer BC, OTHER ==
[2023-02-25] MEDS ORDERED: LORazepam 2 MG/ML SDV IVPUSH ONE (13:43)
[2023-02-25 14:02] VITALS: BP 135/80; PULSE 65
[2023-02-25 14:02] LABS: BASOPHILS ABSOLUTE AUTO 0.04 K/uL (0.00-0.20); BASOPHILS PERCENT AUTO 0.4 % (0.0-1.0); EOSINOPHILS ABSOLUTE AUTO 0.09 K/uL (0.00-0.45); EOSINOPHILS PERCENT AUTO 0.9 % (0.0-6.0); HEMATOCRIT 39.5 % (37.0-47.0); HEMOGLOBIN 13.3 g/dL (12.0-16.0); IMMATURE GRAN ABSOLUTE AUTO 0.04 K/uL (0.00-0.05); IMMATURE GRAN PERCENT AUTO 0.4 % (0.0-0.4); LYMPHOCYTES ABSOLUTE AUTO 2.58 K/uL (1.00-4.80); LYMPHOCYTES PERCENT AUTO 25.4 % (24.0-44.0); MEAN CORPUSCULAR HEMOGLOBIN 31.5 pg (28.0-32.0); MEAN CORPUSCULAR HGB CONC 33.7 g/dL (32.0-36.0); MEAN CORPUSCULAR VOLUME 93.6 fL (83.0-99.0); MEAN PLATELET VOLUME 9.7 fL (9.4-12.3); MONOCYTES ABSOLUTE AUTO 0.69 K/uL (0.00-0.80); MONOCYTES PERCENT AUTO 6.8 % (0.0-8.0); NEUTROPHILS ABSOLUTE AUTO 6.71 K/uL (1.80-7.70); NEUTROPHILS PERCENT AUTO 66.1 % (41.0-71.0); PLATELET COUNT,PLT 327 K/uL (150-400); RED BLOOD CELL COUNT 4.22 M/uL (4.10-5.30); WHITE BLOOD CELL COUNT,WBC 10.15 K/uL (3.9-11.3)
[2023-02-25 14:13] LABS: INR 1.03 (0.86-1.11); PTT,PARTIAL THROMBOPLSTIN TIME 33.1 SEC (23.9-30.7)
[2023-02-25 14:20] LABS: CORONAVIRUS COVID-19 NAA NEGATIVE (NEGATIVE); INFLUENZA A NAA NEGATIVE (NEGATIVE); INFLUENZA B NAA NEGATIVE (NEGATIVE)
[2023-02-25 14:26] LABS: ALBUMIN 3.9 g/dL (3.4-5.0); BILIRUBIN TOTAL 0.8 mg/dL (0.2-1.0); CALCIUM 9.3 mg/dL (8.5-10.1); CARBON DIOXIDE,CO2 27.3 mmol/L (21.0-32.0); EST CRCL DRUG DOSING (CG) 58.91 mL/min; MAGNESIUM 2.1 mg/dL (1.8-2.4); PROTEIN TOTAL,TP 7.7 g/dL (6.4-8.2); TSH ULTRASENSITIVE 1.7 uIU/mL (0.36-3.74)
== END 2023-02-25 14:58 | disposition home or self-care (01) ==
LOC: MW.ED 13:13
DX: R20.2 Paresthesia of skin (principal); Z88.0 Allergy status to penicillin; Z90.710 Acquired absence of both cervix and uterus
CPT/HCPCS: 0240U; 36415; 70450; 80053; 83735; 84443; 84484; 85025; 85610; 85730; 93005; 96374; 99284; J2060; 93010

== ENCOUNTER 2024-10-26 09:13 | Inpatient (IN) | payer OTHER ==
[2024-10-26] MEDS ORDERED: Sodium Chloride 0.9% 10 ML Syringe FLUSH PRN ×3 (09:18→13:16)
[2024-10-26] MEDS ORDERED: Sodium Chloride 0.9% 2.5 ML Syringe FLUSH PRN ×3 (09:18→13:16)
[2024-10-26 09:24] LABS: MEAN PLATELET VOLUME 10.1 fL (9.4-12.3); NRBC ABSOLUTE 0.00 K/uL (0.00-0.02); NRBC PERCENT 0.0 /100WBC (0.0-0.2); PLATELET COUNT,PLT 286 K/uL (150-400); RED BLOOD CELL COUNT 3.39 M/uL (4.10-5.30); WHITE BLOOD CELL COUNT,WBC 10.16 K/uL (3.9-11.3)
[2024-10-26] MEDS: Ondansetron 4 MG/2 ML SDV IVPUSH ONE (09:27)
[2024-10-26] MEDS ORDERED: Norepinephrine Bit/D5W Premix 250 ML IV SCH (09:30)
[2024-10-26 09:31] LABS: BASE EXCESS ARTERIAL -8.4 (-2.0-3.0); BICARBONATE,ARTERIAL 18 mEq/L (21-28); PCO2 ARTERIAL 39 mmHG (35-45); PO2 ARTERIAL 106 mmHG (83-108)
[2024-10-26 09:33] LABS: INR 1.16 (0.86-1.11)
[2024-10-26 10:05] LABS: A/G RATIO 1.1 (0.9-1.6); ALANINE AMINOTRANSFERASE,ALT 13 IU/L (14-63); ASPARTATE AMNIOTRANSFERASE,AST 20 IU/L (15-37); BILIRUBIN TOTAL 0.9 mg/dL (0.2-1.0); BLOOD UREA NITROGEN,BUN 15 mg/dL (7.0-18.0); CARBON DIOXIDE,CO2 17.3 mmol/L (21.0-32.0); CHLORIDE,CL 114 mmol/L (98-107); CREATINE KINASE,CK 155 U/L (26-308); CREATININE 1.2 mg/dL (0.6-1.0); ETHANOL BLOOD MEDICAL <3 mg/dL; GLUCOSE RANDOM 201 mg/dL (74-106); PRO B-TYPE NATRIUR PEPT,BNPPRO 92 pg/mL (0-125); PROTEIN TOTAL,TP 5.2 g/dL (6.4-8.2); SODIUM,NA 144 mmol/L (136-145)
[2024-10-26 10:15] LABS: ESTIMATED GFR 52 mL/min (>60); POTASSIUM,K 2.4 mmol/L (3.5-5.1)
[2024-10-26] MEDS: Potassium Chloride 20 MEQ Tab.ER PO ONE (10:28)
[2024-10-26] MEDS: Magnesium Sulfate 2 GM/50 mL 2 GM in Premix Bag 1 BAG IV ONE (10:31)
[2024-10-26 10:46] LABS: BAND ABSOLUTE MAN 0.10; BAND PERCENT MAN 1 %; LYMPHOCYTES ABSOLUTE MAN 7.42 K/uL (1.00-4.80); LYMPHOCYTES PERCENT MAN 73 % (24-44); MONOCYTES ABSOLUTE MAN 0.81 K/uL (0.00-0.80); MONOCYTES PERCENT MAN 8 % (0-8); SEG NEUTROPHILS ABSOLUTE MAN 1.83 K/uL (1.80-7.70); SEG NEUTROPHILS PERCENT MAN 18 % (41-71)
[2024-10-26 11:02] LABS: TSH ULTRASENSITIVE 5.65 uIU/mL (0.36-3.74)
[2024-10-26 11:22] LABS: T4 FREE 1.06 ng/dL (0.76-1.46)
[2024-10-26 11:31] LABS: BASE EXCESS VENOUS -3.6 (-2.0-3.0); BICARBONATE,VENOUS 23.0 mEq/L (22-29); PCO2 VENOUS 45.0 mmHG (41-51); PH,VENOUS 7.31 (7.32-7.43); PO2 VENOUS 47.0 mmHG (35-45)
[2024-10-26] MEDS: Iopamidol 755 MG/ML 500 ML Multipack Bottle IVPUSH STA (11:50)
[2024-10-26] MEDS ORDERED: Ondansetron 4 MG Tab.DIS PO PRN (13:16)
[2024-10-26] MEDS ORDERED: Ondansetron 4 MG/2 ML SDV IVPUSH PRN (13:16)
[2024-10-26] MEDS ORDERED: Acetaminophen/HYDROcodone 325-5 MG Tab PO PRN (13:16)
[2024-10-26 13:18] LABS: APPEARANCE,URINE CLEAR; GLUCOSE,URINE 100 mg/dL (NEGATIVE); OCCULT BLOOD,URINE NEGATIVE (NEGATIVE)
[2024-10-26 13:28] LABS: AMPHETAMINES SCREEN, URINE NEGATIVE (CUTOFF=500); BUPRENORPHINE SCREEN,URINE NEGATIVE (CUTOFF=10); METHADONE SCREEN, URINE NEGATIVE (CUTOFF=200); METHAMPHETAMINES SCREEN, URINE NEGATIVE (CUTOFF=500); OXYCODONE SCREEN,URINE NEGATIVE (CUT0FF=100); PCP SCREEN,URINE NEGATIVE (CUTOFF=25); THC SCREEN,URINE 20 NG/ML NEGATIVE (CUTOFF=50)
[2024-10-26 16:41] LABS: BLOOD UREA NITROGEN,BUN 15.0 mg/dL (7.0-18.0); CARBON DIOXIDE,CO2 24.2 mmol/L (21.0-32.0); CHLORIDE,CL 108.0 mmol/L (98-107); CREATININE 1.1 mg/dL (0.6-1.0); EST CRCL DRUG DOSING (CG) 53.2 mL/min; ESTIMATED GFR 57.0 mL/min (>60); GLUCOSE RANDOM 122.0 mg/dL (74-106); POTASSIUM,K 4.8 mmol/L (3.5-5.1); SODIUM,NA 141.0 mmol/L (136-145)
[2024-10-26] MEDS: diphenhydrAMINE 50 MG/ML SDV IVPUSH PRN (17:12)
[2024-10-27 05:48] LABS: BASOPHILS ABSOLUTE AUTO 0.03 K/uL (0.00-0.20); BASOPHILS PERCENT AUTO 0.1 % (0.0-1.0); EOSINOPHILS ABSOLUTE AUTO 0.00 K/uL (0.00-0.45); EOSINOPHILS PERCENT AUTO 0.0 % (0.0-6.0); IMMATURE GRAN ABSOLUTE AUTO 0.28 K/uL (0.00-0.05); IMMATURE GRAN PERCENT AUTO 1.0 % (0.0-0.4); LYMPHOCYTES ABSOLUTE AUTO 2.08 K/uL (1.00-4.80); LYMPHOCYTES PERCENT AUTO 7.7 % (24.0-44.0); MEAN PLATELET VOLUME 10.2 fL (9.4-12.3); MONOCYTES ABSOLUTE AUTO 1.08 K/uL (0.00-0.80); MONOCYTES PERCENT AUTO 4.0 % (0.0-8.0); NEUTROPHILS ABSOLUTE AUTO 23.48 K/uL (1.80-7.70); NEUTROPHILS PERCENT AUTO 87.2 % (41.0-71.0); NRBC ABSOLUTE 0.00 K/uL (0.00-0.02); NRBC PERCENT 0.0 /100WBC (0.0-0.2); PLATELET COUNT,PLT 311 K/uL (150-400); RED BLOOD CELL COUNT 3.78 M/uL (4.10-5.30); WHITE BLOOD CELL COUNT,WBC 26.95 K/uL (3.9-11.3)
[2024-10-27 06:22] LABS: A/G RATIO 1.0 (0.9-1.6); ALANINE AMINOTRANSFERASE,ALT 29.0 IU/L (14-63); ASPARTATE AMNIOTRANSFERASE,AST 19.0 IU/L (15-37); BILIRUBIN TOTAL 0.7 mg/dL (0.2-1.0); BLOOD UREA NITROGEN,BUN 19.0 mg/dL (7.0-18.0); CARBON DIOXIDE,CO2 25.8 mmol/L (21.0-32.0); CHLORIDE,CL 109.0 mmol/L (98-107); CREATININE 1.1 mg/dL (0.6-1.0); EST CRCL DRUG DOSING (CG) 53.2 mL/min; GLUCOSE RANDOM 110.0 mg/dL (74-106); PHOSPHORUS 3.8 mg/dL (2.6-4.7); POTASSIUM,K 5.3 mmol/L (3.5-5.1); PROTEIN TOTAL,TP 6.9 g/dL (6.4-8.2); SODIUM,NA 142.0 mmol/L (136-145)
[2024-10-27 06:31] LABS: ESTIMATED GFR 57.0 mL/min (>60)
[2024-10-27 10:57] VITALS: BP 116/52; PULSE 77
== END 2024-10-27 11:15 | disposition home or self-care (01) | DRG 916 ==
LOC: MW.ED 09:13 → MW.MS 13:03 → MERGE 13:03
PROVIDERS: ADMIT Family Medicine; ATTEND Family Medicine
DX: T78.2XXA Anaphylactic shock, unspecified, initial encounter (principal); E87.20 Acidosis, unspecified; T63.441A Toxic effect of venom of bees, accidental (unintentional), initial encounter; E83.42 Hypomagnesemia; R41.82 Altered mental status, unspecified; I95.9 Hypotension, unspecified; R07.9 Chest pain, unspecified; E83.51 Hypocalcemia; E87.6 Hypokalemia; R09.02 Hypoxemia; E86.0 Dehydration; R91.1 Solitary pulmonary nodule; T78.3XXA Angioneurotic edema, initial encounter; Z88.2 Allergy status to sulfonamides
CPT/HCPCS: 36415; 36600; 51702; 70450; 70450-26; 71045; 71045-26; 71260; 71260-26; 74177; 74177-26; 80048; 80053; 80143; 80179; 80305; 80307; 81003; 82330; 82550; 82803; 83036; 83605; 83690; 83735; 83880; 84100; 84439; 84443; 84484; 85025; 85610; 87040; 93005; 93010; 96361; 96365; 96375; 99222; 99239; 99285; 99285-25; A9270-GY; J1200; J1650; J2405; J2543; J3475; J7030; Q9967